=== PATIENT | female | born 1950 | race Two or more races ===

== ENCOUNTER 2020-02-15 15:22 | Inpatient (IN) | payer MEDICARE ==
[~2020-02-15] VITALS: Ht 165.1 cm; Wt 61.2 kg
--- NOTE | 2020-02-15 15:43 | NUR ---
pt rec'd to r via ems was d/c 3 days ago from [facility] . [place] 3 weeks ago./ iv started 18 g iv rt fa labs drawn sent to lab rt at bedside ra 85 % n/c 4 l 99% . sob talking on phone to daughter AWAITING EVALUATION BY ER PROVIDER.
[2020-02-15 15:58] LABS: ABG BASE EXCESS 3.5 mmol/L; ABG OXYGEN SATURATION 98.4 % (92.0-98.5); ABG PCO2 34.7 mmHg (35.0-45.0); ABG PH 7.501 (7.350-7.450); AaDO2 107.3 mmHg; COHb 0.3 % (0.5-1.5); MetHb 0.4 % (0.0-1.5); O2Hb 97.7 % (94.0-97.0); SITE, ABG Right Radial; VENT MODE, BG 5L NC
[2020-02-15] MEDS ORDERED: LEVO112T5 PO (16:28)
[2020-02-15] MEDS ORDERED: SERT100T12 PO (16:28)
[2020-02-15] MEDS ORDERED: ATOR10TA PO (16:28)
[2020-02-15] MEDS ORDERED: LORA-258 PO (16:28)
[2020-02-15] MEDS ORDERED: PRED20TA PO (16:28)
[2020-02-15] MEDS ORDERED: APIX5TAB PO (16:28)
[2020-02-15] MEDS ORDERED: FLEC50TA3 PO (16:28)
[2020-02-15] MEDS ORDERED: TRAZ-257 PO (16:28)
--- NOTE | 2020-02-15 16:45 | NUR ---
covid test done sent to lab
--- NOTE | 2020-02-15 16:49 | NUR ---
EPIC PAGED ITS CÉSAR.
[2020-02-15 16:53] LABS: CARBON DIOXIDE 30 mmol/L (21-32); CHLORIDE 102 mmol/L (98-107); POTASSIUM 3.8 mmol/L (3.5-5.1); SODIUM SERUM 141 mmol/L (136-145)
[2020-02-15 16:54] LABS: CALCIUM, SERUM 8.7 mg/dL (8.5-10.1); CREATININE 0.8 mg/dL (0.6-1.3); GLUCOSE 106 mg/dL (74-106); UREA NITROGEN, BLOOD 27 mg/dL (7-18)
[2020-02-15 16:56] LABS: D-DIMER 1.38 mg/L(FEU (0.17-0.50)
[2020-02-15 17:07] LABS: ALANINE AMINOTRANSFERASE 24 U/L (12-78); ALBUMIN 2.7 g/dL (3.4-5.0); ALKALINE PHOSPHATASE 86 U/L (46-116); ASPARTATE AMINOTRANSFERASE 21 U/L (15-37); BILIRUBIN,TOTAL 0.2 mg/dL (0.2-1.0); CREATINE KINASE, TOTAL 20 U/L (26-192); FERRITIN 425 ng/mL (8-388)
[2020-02-15 17:08] LABS: TOTAL PROTEIN, SERUM 6.7 g/dL (6.4-8.2)
[2020-02-15 17:29] LABS: B-TYPE NATRIURETIC PEPTIDE 269 PG/ML (0-125); C-REACTIVE PROTEIN 1.5 mg/dL (0.0-0.9)
[2020-02-15] MEDS ORDERED: FUROSEMIDE 40 MG/4 ML VIAL IV ONE ×2 (17:30→22:30)
[2020-02-15] MEDS ORDERED: Z GUARD REMEDY 2 OZ OINT TP PRN ×2 (17:30→18:30)
[2020-02-15] MEDS ORDERED: MAG HYDROX/AL HYDROX/SIMETH 30 ML UDC PO PRN (17:30)
[2020-02-15] MEDS ORDERED: MAGNESIUM HYDROXIDE 30 ML UDC PO PRN (17:30)
[2020-02-15] MEDS ORDERED: ONDANSETRON HCL/PF 4 MG/2 ML VIAL IVP PRN (17:30)
[2020-02-15] MEDS ORDERED: ACETAMINOPHEN 325 MG TABLET PO PRN (17:30)
[2020-02-15 17:32] LABS: BASOPHILS # (AUTO) 0.1 /CMM (0.0-0.2); BASOPHILS % (AUTO) 0.4 % (0.0-2.0); EOSINOPHILS % (AUTO) 1.5 % (0.0-6.0); HEMATOCRIT 38 % (33-45); HEMOGLOBIN 12.1 g/dL (11.5-14.8); LYMPHOCYTES # (AUTO) 1.3 /CMM (0.8-4.8); LYMPHOCYTES % (AUTO) 9.9 % (20.0-44.0); MEAN CORPUSCULAR HGB CONC 32 g/dl (31.0-36.0); MEAN CORPUSCULAR VOLUME 88 fL (82-100); MONOCYTES # (AUTO) 0.8 /CMM (0.1-1.30); MONOCYTES % (AUTO) 6.3 % (2.0-12.0); NEUTROPHILS # (AUTO) 10.4 /CMM (1.8-8.9); NEUTROPHILS % (AUTO) 81.9 % (43.0-81.0); PLATELET COUNT (AUTO) 325 /CMM (150-450); RED BLOOD CELL COUNT(AUTO) 4.28 MIL/uL (4.0-5.2); WHITE BLOOD COUNT (AUTO) 12.7 K/uL (4.3-11.0)
--- NOTE | 2020-02-15 17:38 | NUR ---
GOT BED 112
--- NOTE | 2020-02-15 17:43 | NUR ---
called report to floor pt stable for transfer 112
[2020-02-15] MEDS ORDERED: ATORVASTATIN 10 MG TABLET PO SCH (18:00)
--- NOTE | 2020-02-15 19:10 | NUR ---
Admission of 69 year old female who resides at home with her family under the care of Doctor Fanny for shortness of breath. Patient handoff report to night team registered nurse. Vinny Patino RN
[2020-02-15 20:00] VITALS: BP 110/63
[2020-02-15] MEDS: HYDROCODONE/APAP 5/325MG 1 EACH TABLET PO PRN (20:02)
[2020-02-15] MEDS ORDERED: FLECAINIDE ACETATE 50 MG TABLET PO SCH ×2 (21:00)
--- NOTE | 2020-02-15 21:50 | NUR ---
EXPERIMENTAL MECHANIC ELECTRICAL NOTES SPOKE WITH AFTER HOURS PHARMACIST VENKATESH. SHE OK'd TO GIVE LASIX, MISSED DOSE FROM 1730. ALSO GOOD TO GIVE TAMBACORE 100MG 1 TAB INSTEAD OF RX 50MG X2 TABS. AMANDA DONATO OK WITH IT. ORDER RECEIVED AND CARRIED OUT. WILL CONT TO MONITOR
[2020-02-15] MEDS: TRAZODONE 50 MG TABLET PO SCH (21:54)
--- NOTE | 2020-02-15 22:30 | NUR ---
INSTALLATION TECHNICIAN NOTES LASIX 40MG IV PUSH GIVEN PER PROTOCOL. BP 116/69, HR 73
[2020-02-16] VITALS: BP 110/73
[2020-02-16] MEDS: LORAZEPAM 0.5 MG TABLET PO PRN ×3 (00:32→21:05)
[2020-02-16 04:00] VITALS: BP 95/54
--- NOTE | 2020-02-16 07:00 | NUR ---
RN opening note: Patient received in bed. Awake, alert and oriented x4. Able to make needs known. On cont. o2 via NC @2-3lpm with saturation of 95%. Shortness of Breath noted on patient, not in respiratory distress. Tele monitoring showing sinus rhythm. IV site clean, dry, patent and intact. No pain reported by patient. Call light in reach. Bed locked, low and at semi-burnette's position. Side rails up x3. Safety ensured and observed. Will continue to monitor. Addendum: 02/16/20 at 5 by SAGRARIO FOREMAN RN PATIENT ON R/O FOR COVEMANUEL
[2020-02-16] MEDS ORDERED: LEVOTHYROXINE SODIUM 112 MCG TABLET PO SCH (07:30)
[2020-02-16 08:00] VITALS: BP 90/55
[2020-02-16] MEDS: FLECAINIDE ACETATE (100 MG) 100 MG TABLET PO SCH ×2 (08:20→21:05)
[2020-02-16] MEDS: SERTRALINE HCL 50 MG TABLET PO SCH (08:20)
[2020-02-16] MEDS: LEVOTHYROXINE SODIUM 112 MCG TABLET PO SCH (08:20)
[2020-02-16] MEDS: APIXABAN 5 MG TABLET PO SCH ×2 (08:24→18:00)
[2020-02-16] MEDS ORDERED: FUROSEMIDE 40 MG/4 ML VIAL IV SCH ×2 (09:00)
[2020-02-16] MEDS ORDERED: SERTRALINE HCL 50 MG TABLET PO SCH (09:00)
[2020-02-16] MEDS ORDERED: APIXABAN 5 MG TABLET PO SCH (09:00)
[2020-02-16] MEDS ORDERED: predniSONE 20 MG TABLET PO SCH (09:00)
[2020-02-16] MEDS: IV NS 0.9% 1,000 ML IV PRN ×2 (11:33→21:05)
[2020-02-16 12:00] VITALS: BP 103/68
[2020-02-16] MEDS: HYDROCODONE/APAP 5/325MG 1 EACH TABLET PO PRN (14:35)
[2020-02-16 16:00] VITALS: BP 118/72
--- NOTE | 2020-02-16 17:54 | NUR ---
RN note: Informed Dr. Escobedo that patient's medical records from [facility] has been received and is at the patient's chart.
[2020-02-16] MEDS: ATORVASTATIN 10 MG TABLET PO SCH (18:01)
--- NOTE | 2020-02-16 19:00 | NUR ---
RN closing note: Patient in bed. Awake, alert and oriented x4. Able to make needs known. On cont. o2 via NC @2-3lpm with saturation of 97%. Shortness of Breath noted on patient, not in respiratory distress. Tele monitoring showing sinus rhythm. IV site clean, dry, patent and intact. Pain reported by patient managed with medications on shift with reported relief. Call light in reach. Bed locked, low and at semi-burnette's position. Side rails up x3. Safety ensured and observed. Endorsed to oncoming shift for CASH. Addendum: 02/16/20 at 1954 by SAGRARIO FOREMAN RN PATIENT ON R/O FOR KATINA
[2020-02-16 20:00] VITALS: BP 109/79
[2020-02-16] MEDS: TRAZODONE 50 MG TABLET PO SCH (21:18)
[2020-02-17] VITALS: BP 100/80
[2020-02-17 04:00] VITALS: BP 105/59
[2020-02-17] MEDS: HYDROCODONE/APAP 5/325MG 1 EACH TABLET PO PRN ×2 (04:09→16:15)
--- NOTE | 2020-02-17 04:29 | NUR ---
RN NOTES ALERT AND ORIENTED. VERBALLY ABLE TO COMMUNICATE NEEDS. IN NO DISTRESS, BREATHING EVEN AND UNLABORED. ON 2 LPM 02 VIA NASAL CANNULA TOLERATING WELL. COMPLAINT ON PAIN, NORCO GIVEN WITH RELIEF. VITAL SIGNS WNL. KEPT CLEAN AND DRY. WILL ENDORSE TO NEXT SHIFT FOR CONTINUITY OF CARE.
--- NOTE | 2020-02-17 04:34 | NUR ---
RN NOTES ALERT AND ORIENTED. VERBALLY ABLE TO COMMUNICATE NEEDS. NOTED O2SAT AT 84-87% AT 3LPM VIA NASAL CANNULA. INCREASED O2 TO 5LPM SATURATION INCREASED TO 90%. CALLED MD, ORDERED ABG. RESULTS FOREWARDED TO MD (DR PATEL). GAVE NEW ORDER TO PUT PATIENT ON A MASK AT 10LPM. NOTED AND CARRIED OUT. O2SAT INCREASED FROM 92-94%. NO SHORTNESS OF BREATH NOTED. VITAL SIGNS WNL. CONTINUOUS MONITORING DONE. KEPT CLEAN AND DRY. WILL ENDORSE TO NEXT SHIFT FOR CONTINUITY OF CARE.
[2020-02-17] MEDS: IV NS 0.9% 1,000 ML IV PRN ×2 (05:39→17:18)
[2020-02-17 06:38] LABS: BASOPHILS # (AUTO) 0.1 /CMM (0.0-0.2); BASOPHILS % (AUTO) 0.6 % (0.0-2.0); EOSINOPHILS % (AUTO) 4.9 % (0.0-6.0); HEMATOCRIT 37 % (33-45); HEMOGLOBIN 12.1 g/dL (11.5-14.8); LYMPHOCYTES # (AUTO) 1.4 /CMM (0.8-4.8); LYMPHOCYTES % (AUTO) 14.8 % (20.0-44.0); MEAN CORPUSCULAR HGB CONC 33 g/dl (31.0-36.0); MEAN CORPUSCULAR VOLUME 87 fL (82-100); MONOCYTES # (AUTO) 0.8 /CMM (0.1-1.30); MONOCYTES % (AUTO) 8.1 % (2.0-12.0); NEUTROPHILS # (AUTO) 6.9 /CMM (1.8-8.9); NEUTROPHILS % (AUTO) 71.6 % (43.0-81.0); PLATELET COUNT (AUTO) 234 /CMM (150-450); RED BLOOD CELL COUNT(AUTO) 4.25 MIL/uL (4.0-5.2); WHITE BLOOD COUNT (AUTO) 9.6 K/uL (4.3-11.0)
[2020-02-17 07:05] LABS: ALBUMIN 2.5 g/dL (3.4-5.0); BILIRUBIN,TOTAL 0.4 mg/dL (0.2-1.0); CREATININE 0.7 mg/dL (0.6-1.3); MAGNESIUM 1.6 mg/dL (1.8-2.4); PHOSPHORUS 2.9 mg/dL (2.5-4.9); POTASSIUM 3.1 mmol/L (3.5-5.1); TOTAL PROTEIN, SERUM 5.9 g/dL (6.4-8.2)
--- NOTE | 2020-02-17 07:30 | NUR ---
MAMMAL KEEPER AM NOTES RECEIVED PT IN BED, AO X 4, ON 2L O2, NO DENIES SOB, RESPIRATION UNLABORED,SINUS RHYTHM HR 74, DENIES PAIN OR DISCOMFORT, IV ACCESS TO RT WRIST PULLED OUT, WILL RESTART IN ANOTHER SITE. AMBULATES WITH ASSIST, SEE NURSING FLOWSHEET FOR SKIN ISSUES, CARDIAC DIET. COVID TEST PENDING, ISOLATION PRECAUTION OBSERVED, SAFETY MEASURES IN PLACE , CALL IGHT WITHIN REACH WILL MONITOR CLOSELY.
[2020-02-17 08:00] VITALS: BP 97/55
[2020-02-17] MEDS: LEVOTHYROXINE SODIUM 112 MCG TABLET PO SCH (08:03)
[2020-02-17] MEDS: FLECAINIDE ACETATE (100 MG) 100 MG TABLET PO SCH ×2 (08:44→21:33)
[2020-02-17] MEDS: SERTRALINE HCL 50 MG TABLET PO SCH (08:44)
[2020-02-17] MEDS: APIXABAN 5 MG TABLET PO SCH ×2 (08:45→17:15)
--- NOTE | 2020-02-17 09:30 | NUR ---
TEAM MEMBER NOTES DUE MEDS GIVEN.
[2020-02-17] MEDS: Magnesium 1GM/D5W 100ML PREMIX 100 ML IV SCH ×2 (10:31→11:52)
[2020-02-17] MEDS ORDERED: POTASSIUM CHLORIDE 20 MEQ TAB.PRT.SR PO ONE (11:30)
[2020-02-17] MEDS ORDERED: POTASSIUM CHLORIDE 20 MEQ TAB.PRT.SR PO SCH (11:30)
[2020-02-17 12:00] VITALS: BP 133/51
--- NOTE | 2020-02-17 12:10 | NUR ---
RN NOTES NOTIFIED DR. LINDSEY ABOUT PATIENT WANTS TO TALK TO HIM AND NOTIFIED DR. LANDA REGARDING PATIENT WANTS TO TALK TO HIM WELL REGARDING HER APPOINTMENT TOMORROW AT HIS OFFICE.
[2020-02-17] MEDS: predniSONE 20 MG TABLET PO SCH (15:15)
[2020-02-17 16:00] VITALS: BP 109/62
[2020-02-17] MEDS: ATORVASTATIN 10 MG TABLET PO SCH (17:15)
--- NOTE | 2020-02-17 18:33 | NUR ---
WIRELESS RETAIL MANAGER CLOSING NOTES PT RESTING IN BED, AO X 4, ON 2L O2, DENIES SOB, RESPIRATION UNLABORED,SINUS RHYTHM HR 7Os TO 80s, DENIES PAIN OR DISCOMFORT, IV ACCESS LEFT FOREARM G 22 WITH NS AT 100ML/HR RUNNING, SITE CLEAR. AMBULATES WITH ASSIST, CARDIAC DIET. COVID TEST PENDING, ISOLATION PRECAUTION OBSERVED, PM CARE DONE EARLIER, SAFETY MEASURES IN PLACE , CALL LIGHT WITHIN REACH, ALL NEEDS MET WILL ENDORSE TO NEXT SHIFT FOR CASH.
--- NOTE | 2020-02-17 19:10 | NUR ---
RN OPENING NOTE RECEIVED PATIENT IS IN BED RESTING, HOB ELEVATED. BREATHING EVEN AND NON LABORED NO SOB NOTED. A&O X 4. ABLE TO MAKE NEEDS KNOWN. ON 2 L O2 VIA NC. IN NO APPARENT DISTRESS NOTED AT THIS TIME. BED IS LOWERED TO LOW POSITION FOR SAFETY. WILL CONTINUE TO MONITOR.
[2020-02-17 20:00] VITALS: BP 95/49
[2020-02-17] MEDS: TRAZODONE 50 MG TABLET PO SCH (21:33)
[2020-02-18] VITALS: BP 95/55
--- NOTE | 2020-02-18 01:45 | NUR ---
GIZZARD PULLER NOTE PATIENT TRANSFERRED TO [facility]-1 IN STABLE CONDITION AROUND THIS TIME. BELONGINGS SENT WITH PATIENT. REPORT GIVEN TO MELISSA MACIAS FOR CONTINUATION OF CARE.
--- NOTE | 2020-02-18 02:00 | NUR ---
TELE/STRIP STAMP STRAIGHTENER TO TELE MED SURG FLOOR. RECEIVED PATIENT TRANSFERED FROM [facility] ACCOMPANIED BY RN WITH BELONGINGS, PATIENT ALERT, ORIENTED X3, PROVIDED ROOM ORIENTATION AND ABLE TO PLAN CARE, PATIENT WOULD LIKE TO RECOVER AND GET BETTER AND BE ABLE TO MAKE APPT SCHEDULED WITH HER DOCTORS, THAT SHE WOULD LIKE TO BE EVALUATED FOR DISCHARGE SAFETY MEASURES TO BE ABLE TO SAFELY BE HOME. UNSTEADY GAIT WITH LOW BLOOD PRESSURE REPORTED. PATIENT ABLE TO COOPERATE, ON OXYGEN VIA NC AT 2LITER, ABLE TO VERBALIZE NEEDS, REQUIRE ASSISTANCE WITH ALL NEEDS. IV SITE ON RIGHT WRIST PATENT, SKIN INTACT, ON TELE SR. WILL ENDORSE TO AM RN FOR CASH. BED LOCKED, CALL LIGHTS WITHIN REACH.
[2020-02-18] MEDS: HYDROCODONE/APAP 5/325MG 1 EACH TABLET PO PRN ×2 (03:39→12:27)
--- NOTE | 2020-02-18 03:44 | NUR ---
TELE/RN PATIENT REPORTED CHEST PAIN ON RIGHT CHEST OF 06/01, PROVIDED COMFORT MEASURES, VITAL SIGNS CHECK AT 106/66,74, 98 PERCENT AT 2LITER OXYGEN, RESPIRATIONS EVEN, PATIENT REPORTED NEIGHBOR IS LOUD AND WORRIED ABOUT GOING HOME, BUT ABLE TO COOPERATE AND PRACTICE BREATHING , NEEDED MEDICATION NORCO 5-325 MG PO GIVEN. ALSO REPORTED NO BOWEL MOVT FOR THE PAST 5 DAYS. CHEST PAIN FOR THE LAST 5 WEEKS ALREADY REPORTED BY PATIENT.
[2020-02-18 04:00] VITALS: BP 95/55
--- NOTE | 2020-02-18 04:12 | NUR ---
TELE/RN NOTES RELIEVED CHEST PAIN FROM06/01 TO 12/30, PATIENT REQUIRE REORIENTATION PATIENT JUST CAME FROM [facility] AND WAS DOWNGRADED TO MS/TELE FLOOR.
--- NOTE | 2020-02-18 04:51 | NUR ---
MAINTAIN EFFECTIVE BREATHING PATTERN. Addendum: 02/18/20 at 0452 by GILBERTO QUINTERO RN Amended: Links added.
--- NOTE | 2020-02-18 07:00 | NUR ---
TELE/RN CLOSING NOTES PATIENT ABLE TO SLEEP FEW HOURS, ALERT, ORIENTED X3, WITH GOOD FAMILY SUPPORT,, ABLE TO VERBALIZE NEEDS, AND MD MADE ROUNDS, FOR DISCHARGE PLANNING AND F/U APPT. WITH MD IN ONE WEEK. PATIENT REQUIRE ASSISTANCE FOR SAFETY AND MAY NEED DC /CASE MGMT AND PHYSICAL THERAPY FOR EVALUATION. TO MONITOR.WILL ENDORSE TO AM RN FOR CASH.
[2020-02-18] MEDS: LEVOTHYROXINE SODIUM 112 MCG TABLET PO SCH (07:30)
--- NOTE | 2020-02-18 07:58 | NUR ---
TELE/RN OPENING NOTES RECEIVED PATIENT IN BED, AWAKE, ALERT AND ORIENTED. NO SIGNS OF RESPIRATORY DISTRESS, NO SIGNS OF SOB, AND WITH EVEN NON-LABORED BREATHING. IV ACCESS INTACT, IN PLACE, AND PATENT. ON CATERING ASSOCIATE WITH READING BLOCK SR 72. SAFETY PRECAUTIONS IN PLACE WITH BED IN THE LOWEST POSITION, BILATERAL SIDE RAILS UP, BED LOCKED, AND CALL LIGHT WITHIN EASY REACH OF THE PATIENT. WILL CONTINUE TO MONITOR.
[2020-02-18 08:49] LABS: CALCIUM, SERUM 8.2 mg/dL (8.5-10.1); CREATININE 0.6 mg/dL (0.6-1.3); MAGNESIUM 2.2 mg/dL (1.8-2.4); POTASSIUM 3.9 mmol/L (3.5-5.1)
[2020-02-18] MEDS: FLECAINIDE ACETATE (100 MG) 100 MG TABLET PO SCH (08:51)
[2020-02-18] MEDS: predniSONE 20 MG TABLET PO SCH (08:51)
[2020-02-18] MEDS: SERTRALINE HCL 50 MG TABLET PO SCH (08:51)
[2020-02-18] MEDS: APIXABAN 5 MG TABLET PO SCH (08:53)
--- NOTE | 2020-02-18 12:27 | NUR ---
MS/RN NOTES PATIENT C/O CHEST PAIN 05/01 NORCO 5/325MG WAS GIVEN.
--- NOTE | 2020-02-18 15:10 | NUR ---
MS/RN NOTES PATIENT IS ALERT AND ORIENTED X4. PATIENT DENIES PAIN AT THIS TIME. THE PATIENT IN NO APPARENT RESPIRATORY DISTRESS NOTED. SEEN AND EXAMINED BY MD WITH ORDERS MADE AND CARRIED OUT. PATIENT WAS GIVEN DISCHARGED INSTRUCTIONS AND PATIENT VERBALIZED UNDERSTANDING. THE PATIENT LEFT THE HOSPITAL IN STABLE CONDITION AT 1510, ACCOMPANIED BY PHOTOGRAPHY SPOTTER VIA WHEELCHAIR AND BRANCH OPERATIONS COORDINATOR BY KAREN THE DAUGHTER IN A PRIVATE CAR.
== END 2020-02-18 15:15 | disposition home health service (06) | DRG 205 ==
LOC: ER 15:24 → TELE-TD 18:58 → TELE1 20:51 → TELE 02-18 01:51 → MED 02-18 12:12
PROVIDERS: ADMIT Internal Medicine; ATTEND Internal Medicine
DX: J70.4 Drug-induced interstitial lung disorders, unspecified (principal); J96.01 Acute respiratory failure with hypoxia; E43 Unspecified severe protein-calorie malnutrition; I50.31 Acute diastolic (congestive) heart failure; I48.92 Unspecified atrial flutter; I31.9 Disease of pericardium, unspecified; E87.3 Alkalosis; I11.0 Hypertensive heart disease with heart failure; Z68.22 Body mass index [BMI] 22.0-22.9, adult; T46.2X5A Adverse effect of other antidysrhythmic drugs, initial encounter; Y92.89 Other specified places as the place of occurrence of the external cause; I48.91 Unspecified atrial fibrillation; E78.5 Hyperlipidemia, unspecified; E03.9 Hypothyroidism, unspecified; F32.9 Major depressive disorder, single episode, unspecified; F41.9 Anxiety disorder, unspecified; I95.9 Hypotension, unspecified; E87.6 Hypokalemia; Z87.891 Personal history of nicotine dependence; Z79.01 Long term (current) use of anticoagulants; J70.2 Acute drug-induced interstitial lung disorders
CPT/HCPCS: 36415; 36600; 71045-TC; 80048-TC; 80053-TC; 82550-TC; 82728-TC; 83605-TC; 83615-TC; 83735-TC; 83880; 84100-TC; 84484-TC; 85025-TC; 85378-TC; 85730-TC; 86140-TC; 87040-TC; 87081-TC; 93307-TC; A6403; G0378; J1940; J3475; J7030; J7042

== ENCOUNTER 2020-03-14 13:51 | Emergency (ER) | payer MEDICARE ==
[~2020-03-14] VITALS: Ht 165.1 cm; Wt 59.9 kg
[~2020-03-14 13:51] MED LIST: APIX5TAB PO; ATOR10TA PO; FLEC50TA3 PO; LEVO112T5 PO; LORA-258 PO; PRED20TA PO; SERT100T12 PO; TRAZ-257 PO
[2020-03-14 13:55] VITALS: BP 110/61
--- NOTE | 2020-03-14 13:55 | NUR ---
BIB FAMILY C/O SOB FOR 6 WEEKS AND DRY COUGH. PER PATIENT, WAS INSTRUCTED BY DR HERR TO GO TO THE ER. TO ER BED 8, HOOKED TO MONITOR, HOOKED TO 2LPM O2 VIA NC, CHANGED TO HOSP GOWN, WARM BLABKET PROVIDED, PATIENT AAO X 4, AWAITING MD RODRIGUEZ.
--- NOTE | 2020-03-14 14:24 | NUR ---
DR CRUZ AT BEDSIDE
--- NOTE | 2020-03-14 14:51 | NUR ---
Patient does not wish to proceed with medical care recommended by Dr. Fuentes. Patient given information related to possible complications, up to and including , which could occur as a result of leaving the hospital at this time. Patient verbalizes understanding of risks involved due to leaving against medical advice. Patient has signed AMA form.
== END 2020-03-14 14:51 | disposition left against medical advice (07) ==
LOC: ER 13:52
DX: R06.02 Shortness of breath (principal); I11.0 Hypertensive heart disease with heart failure; I50.9 Heart failure, unspecified; E03.9 Hypothyroidism, unspecified; E78.5 Hyperlipidemia, unspecified; J44.9 Chronic obstructive pulmonary disease, unspecified; Z88.8 Allergy status to other drugs, medicaments and biological substances; Z79.899 Other long term (current) drug therapy

== ENCOUNTER 2020-04-11 11:04 | Inpatient (IN) | payer MEDICARE ==
[2020-04-11] VITALS (17 sets, daily range): BP systolic 83–147; BP diastolic 40–79
[~2020-04-11] VITALS: Ht 165.1 cm; Wt 56.2 kg
[2020-04-11] MEDS ORDERED: IV NS 0.9% 1,000 ML BAG IV ONE (11:30)
--- NOTE | 2020-04-11 11:35 | NUR ---
BALJINDER FROM HOME TO ER BED 5. AAOX4. IN MOD RESP DISTRESS, BREATHING RAPID DEEP BREATHING. CAME IN FOR SOB. PER PT, SHE HAS BEEN GOING ON FOR WEEKS AND TODAY WAS WORST. PT IS BASELINE USING 02 AT HOME @ 3LPM VIA NC. PT ARRIVED ON HIGH FLOW O2 SATTING @ 100%. PT IS NOW TITRATED DOWN TO 5LPM VIA NC STILL SATTING AT 100%. WAS AT [facility] BEDSIDE FOR EVAL. ORDERS RECEIVED, NOTED AND CARRIED OUT. IV LIVE PRESENT ON RFA 18G BY EMS. STARTED NEW IV ON L WRIST 18G, BLOOD DRAWN AND GIVEN TO WOODS LABORER AT BEDSIDE. EKG DONE. PLACE ON MONITOR.
--- NOTE | 2020-04-11 11:36 | NUR ---
PT IS ALSO NOTED HYPOTENSIVE WITH SBP IN 90S
[2020-04-11 11:42] LABS: BASOPHILS # (AUTO) 0.1 /CMM (0.0-0.2); BASOPHILS % (AUTO) 0.4 % (0.0-2.0); EOSINOPHILS % (AUTO) 0.8 % (0.0-6.0); HEMATOCRIT 35 % (33-45); HEMOGLOBIN 11.1 g/dL (11.5-14.8); LYMPHOCYTES # (AUTO) 0.6 /CMM (0.8-4.8); MEAN CORPUSCULAR HGB CONC 32 g/dl (31.0-36.0); MEAN CORPUSCULAR VOLUME 88 fL (82-100); MONOCYTES # (AUTO) 0.7 /CMM (0.1-1.30); MONOCYTES % (AUTO) 4.8 % (2.0-12.0); NEUTROPHILS # (AUTO) 13.7 /CMM (1.8-8.9); PLATELET COUNT (AUTO) 201 /CMM (150-450); RED BLOOD CELL COUNT(AUTO) 3.94 MIL/uL (4.0-5.2); WHITE BLOOD COUNT (AUTO) 15.2 K/uL (4.3-11.0)
[2020-04-11] MEDS ORDERED: PIPERACILLIN /TAZOBACTAM 3.375 G in IV D5W 50 ML IV ONE (12:00)
[2020-04-11] MEDS ORDERED: VANCOMYCIN 1 GM in IV D5W 250 ML IV ONE (12:00)
--- NOTE | 2020-04-11 12:05 | NUR ---
MOVE SHEET SUBMITTED TO ADMITTING AND CALLED FOR TELE BED.
[2020-04-11 12:08] LABS: ALANINE AMINOTRANSFERASE 14 U/L (12-78); ALBUMIN 2.5 g/dL (3.4-5.0); ALKALINE PHOSPHATASE 73 U/L (46-116); ASPARTATE AMINOTRANSFERASE 22 U/L (15-37); BILIRUBIN,DIRECT 0.2 mg/dL (0.0-0.2); BILIRUBIN,TOTAL 0.5 mg/dL (0.2-1.0); CALCIUM, SERUM 8.7 mg/dL (8.5-10.1); CARBON DIOXIDE 31 mmol/L (21-32); CHLORIDE 101 mmol/L (98-107); CREATININE 0.7 mg/dL (0.6-1.3); GLUCOSE 116 mg/dL (74-106); POTASSIUM 3.6 mmol/L (3.5-5.1); SODIUM SERUM 136 mmol/L (136-145); TOTAL PROTEIN, SERUM 6.7 g/dL (6.4-8.2); UREA NITROGEN, BLOOD 19 mg/dL (7-18)
[2020-04-11] MEDS ORDERED: ONDANSETRON HCL/PF 4 MG/2 ML VIAL IVP PRN (13:00)
[2020-04-11] MEDS ORDERED: ACETAMINOPHEN 325 MG TABLET PO PRN (13:00)
[2020-04-11 13:02] LABS: APPEARANCE,URINE Clear (CLEAR); BILIRUBIN,URINE Negative (NEGATIVE); BLOOD, URINE Negative Ery/uL (NEGATIVE); COLOR,URINE Yellow (YELLOW); KETONES,URINE 15 (NEGATIVE); LEUKOCYTE ESTERASE ,URINE Negative (NEGATIVE); NITRITE, URINE Negative (NEGATIVE); PROTEIN,URINE 30 mg/dl (NEGATIVE); UGLUCOSE Negative (NEGATIVE)
[2020-04-11 13:08] LABS: BACTERIA,URINE Few /HPF (None Seen); RBC,URINE NONE SEEN /HPF (0-2); SQUAMOUS EPITHELIAL CELL,UR Few /HPF (None Seen); WBC,URINE NONE SEEN /HPF (0-3)
--- NOTE | 2020-04-11 14:05 | NUR ---
called to give report. nurse is on break. will call back again
--- NOTE | 2020-04-11 14:49 | NUR ---
report given to sadie hopkins for nory
--- NOTE | 2020-04-11 14:50 | NUR ---
PT NOTED SATTING @ 70S AFTER SHE HAD BM. PLACED ON FACE MASK @ 10LPM SATTING AT 80S.
[2020-04-11 14:58] LABS: C-REACTIVE PROTEIN 151.4 mg/dL (0.0-0.9)
--- NOTE | 2020-04-11 15:08 | NUR ---
PT IS ON O2 VIA NON REBREATHER @ 15LPM NOTED IN THE 88-93%. DR. ARREDONDO'S PA MADE AWARE.
--- NOTE | 2020-04-11 15:20 | NUR ---
ABG ORDERED AND DONE.
[2020-04-11 15:26] LABS: ABG BASE EXCESS -0.3 mmol/L; ABG OXYGEN SATURATION 90.4 % (92.0-98.5); ABG PCO2 37.1 mmHg (35.0-45.0); ABG PH 7.425 (7.350-7.450); ABG PO2 58.1 mmHg (75.0-100.0); AaDO2 473.4 mmHg; COHb 0.4 % (0.5-1.5); MetHb 0.2 % (0.0-1.5); O2Hb 89.9 % (94.0-97.0); SITE, ABG Right Radial; VENT MODE, BG NRB
[2020-04-11] MEDS ORDERED: LORAZEPAM INJ 2 MG/ML VIAL ONE (15:31)
--- NOTE | 2020-04-11 15:37 | NUR ---
PT IS REMAINED ON NON REBREATHER @ 15LPM SATTING @ 90-93%. PT IS ANXIOUS AND RESTLESS WHICH COULD BE EXACERABTING THE DESATURATION. MD NOTIFIED. VERBAL ORDER RECEIVED TO GIVE ATIVAN 1MG IV X 1. NOTED AND CARIED OUT
[2020-04-11] MEDS ORDERED: LORAZEPAM INJ 2 MG/ML VIAL IV ONE (16:00)
--- NOTE | 2020-04-11 16:05 | NUR ---
RN OPENING NOTES RECEIVED PATIENT FROM ER. A/O X4, AWAKE ABLE TO FOLLOW COMMANDS. PATIENT IS ON 10L O2 VIA MASK, SATURATING AT 92%. PATIENT PLACED ON TELE MONITOR, SINUS TACHY NOTED, HR GOES UP TO 110. LEFT WRIST #20, AND RFA #18, INTACT, PATENT AND FLUSHED WELL. NO SIGNS AND SYMPTOMS OF INFILTRATION NOTED. PATIENT IS REFUSING TO BE PLACED IN THE GOWN. REFUSING SKIN ASSESSMENT AND PICTURES. SAFETY MAINTAINED, CALL LIGHT WITHIN REACH, WILL CONTINUE TO MONITOR CLOSELY.
--- NOTE | 2020-04-11 16:08 | NUR ---
pt transported to unit on [place] with emt and rn at bedside w/ acls protocol.
[2020-04-11] MEDS ORDERED: FEE PK DOSING 1 MIN EA MC ONE (16:31)
[2020-04-11] MEDS ORDERED: predniSONE 20 MG TABLET PO SCH (17:00)
[2020-04-11] MEDS: ATORVASTATIN 10 MG TABLET PO SCH (17:26)
[2020-04-11] MEDS: APIXABAN 5 MG TABLET PO SCH (17:27)
[2020-04-11] MEDS ORDERED: DEXAMETHASONE SOD PHOSPHATE 10 MG/ML VIAL IV SCH (18:30)
--- NOTE | 2020-04-11 18:51 | NUR ---
RN NOTE 1830: Received patient from Tele 1, patient admitted for Hypoxic RF, PNA, R/O Covid. Transferred to ICU for requiring increase O2 supplement, placed on HFNC by RT 60LPM 100% FIO2 and ABG 1929. Patient is confused and unable to concentrate. 1855: Dr. Lloyd called and wants to get ABG now, informed RT and endorsed to next shift.
[2020-04-11] MEDS: DEXAMETHASONE SOD PHOSPHATE 10 MG/ML VIAL IV SCH (18:59)
--- NOTE | 2020-04-11 19:00 | NUR ---
Received patient lethargic,but easily arousable,responds to verbal stimuli/name call,opens eyes briefly ,tries to communicate,but disoriented/confuse,floows simple commands.On High Flow oxygen via nasal cannula 60 Liters/100 % FIO2, not in any acute respiratory distress,but with SOB on exertion, + dry cough. Moves but very weakly and looks very tired,needs full assistance with mobility.Will closely monitor respiratory status,weann off High flow oxygen as tolerated.
--- NOTE | 2020-04-11 19:40 | NUR ---
ABG result on 60 Liters/100 % High flow relayed to Dr. Lloyd. Wants to slowly wean down O2 to maintain saturation of 92 % and above. 1999 High Flow decreased FIO2 to 80 % by RT.
[2020-04-11] MEDS ORDERED: CEFEPIME 2 GM in IV NS 0.9% 50 ML IV SCH (21:00)
[2020-04-11] MEDS: FLECAINIDE ACETATE 50 MG TABLET PO SCH (21:00)
[2020-04-11] MEDS: CEFEPIME 2 GM in IV D5W 100 ML IV SCH (21:14)
--- NOTE | 2020-04-11 22:00 | NUR ---
Tolerating high flow on 80 % FIO2 but still with SOB on exertion.
--- NOTE | 2020-04-11 22:30 | NUR ---
Patient woke up ,very awake,but confuse ,trying to get out of bed,took off Oxygen cannula,became very tachypneic ,very short of breath, desaturated as low as 70's . O2 saturation slowly back up in the 90's after placing back High flow. Noted to be wet, incontinent of urine.will insert urrutia catheter, maybe patient tried to get up to go to the bathroom.
--- NOTE | 2020-04-11 23:00 | NUR ---
PM bath done,urrutia catheter inserted. Patient remains very confuse and restless when awake.Bed alarm turned on at all times,keen fall Precaution implemented.
[2020-04-11] MEDS: TRAZODONE 50 MG TABLET PO SCH (23:04)
[2020-04-12] VITALS (47 sets, daily range): BP systolic 87–134; BP diastolic 37–90
--- NOTE | 2020-04-12 | NUR ---
Calm at this time,asleep.saturating 100 %.Decrease FIO2 to 70 %,still with 60 Liters O2.Will closely monitor respiratory status.
[2020-04-12] MEDS: VANCOMYCIN 1 GM in IV D5W 250ml IV SCH ×2 (01:00→13:00)
--- NOTE | 2020-04-12 02:00 | NUR ---
on and off restless when awakens,still very confuse ,gets very short of breath when agitated,pulling lines trying to get out of bed. when calm saturating 98=99 %,
--- NOTE | 2020-04-12 04:00 | NUR ---
Status unchanged. 0500 Agitated,restless,confuse,pulling lines,and taking off High Flow,trying to get out of bed again,place on bilateral soft wrist restraints.
[2020-04-12 04:22] LABS: BASOPHILS % (AUTO) 0.1 % (0.0-2.0); HEMATOCRIT 30 % (33-45); HEMOGLOBIN 9.7 g/dL (11.5-14.8); LYMPHOCYTES # (AUTO) 0.4 /CMM (0.8-4.8); LYMPHOCYTES % (AUTO) 2.8 % (20.0-44.0); MEAN CORPUSCULAR HGB CONC 32 g/dl (31.0-36.0); MEAN CORPUSCULAR VOLUME 87 fL (82-100); MONOCYTES # (AUTO) 0.3 /CMM (0.1-1.30); MONOCYTES % (AUTO) 1.7 % (2.0-12.0); NEUTROPHILS # (AUTO) 14.8 /CMM (1.8-8.9); NEUTROPHILS % (AUTO) 95.4 % (43.0-81.0); PLATELET COUNT (AUTO) 195 /CMM (150-450); RED BLOOD CELL COUNT(AUTO) 3.47 MIL/uL (4.0-5.2); WHITE BLOOD COUNT (AUTO) 15.5 K/uL (4.3-11.0)
[2020-04-12 04:38] LABS: CALCIUM, SERUM 8.4 mg/dL (8.5-10.1); CREATININE 0.6 mg/dL (0.6-1.3); MAGNESIUM 1.9 mg/dL (1.8-2.4); PHOSPHORUS 2.1 mg/dL (2.5-4.9); POTASSIUM 3.2 mmol/L (3.5-5.1)
[2020-04-12] MEDS: DEXAMETHASONE SOD PHOSPHATE 10 MG/ML VIAL IV SCH ×3 (04:45→20:21)
[2020-04-12] MEDS: CEFEPIME 2 GM in IV D5W 100 ML IV SCH ×3 (04:46→20:21)
[2020-04-12] MEDS: LORAZEPAM 0.5 MG TABLET PO PRN ×3 (05:25→15:38)
--- NOTE | 2020-04-12 06:00 | NUR ---
Awake.alert,very confuse,on and off restless,still on High flow 60 liyers /70% FIO2.Still easily gets very short of breath and easily desaturates if O2 comes off.Will need to closely monitor to make sure O2 is on all the time. Still pending Covid test result.Maintain isolation.
--- NOTE | 2020-04-12 07:00 | NUR ---
received patient with high flow oxygen 60L, FiO2 70%, spo2 >94%, restless
--- NOTE | 2020-04-12 08:00 | NUR ---
RT attempted to put patient on 6L O2 via NC, however desaturation noted, SPO2 85%. Placed back on high flow 55L, 60% FiO2
[2020-04-12] MEDS: SERTRALINE HCL 50 MG TABLET PO SCH (08:49)
[2020-04-12] MEDS: APIXABAN 5 MG TABLET PO SCH ×2 (08:50→18:15)
[2020-04-12] MEDS: FLECAINIDE ACETATE 50 MG TABLET PO SCH (08:50)
[2020-04-12] MEDS: LEVOTHYROXINE SODIUM 112 MCG TABLET PO SCH (08:50)
[2020-04-12] MEDS: POTASSIUM CHLORIDE 20 MEQ TAB.PRT.SR PO SCH ×2 (10:27→11:30)
[2020-04-12] MEDS ORDERED: K PHOS NEUTRAL 250 MG TABLET PO ONE (10:30)
--- NOTE | 2020-04-12 10:41 | NUR ---
Code Status note Received call from Dean, patient's brother [phone] @[phone] today who stated he is patient's decision maker and she is to be DNI. On the facesheet, patient's daughter Anne Marie is listed. Called to verify with Anne Marie @1040 who verified DNI status. Patient is oriented to self (verbalizes name) and time (verbalizes year is 2019) only , when asked if she would want to be intubated she said "no" . Dr. Lloyd aware of change. Addendum: 04/12/20 at 1126 by SALLIE BHAKTA RN added dean to facesheet as person to notify
--- NOTE | 2020-04-12 13:45 | NUR ---
Spo2 85%, RR 50s, HR 120s -> increased highflow to 60L O2, 80%FiO2
[2020-04-12] MEDS ORDERED: AZITHROMYCIN 250 MG in IV D5W 250 ML IV SCH (14:00)
[2020-04-12] MEDS ORDERED: CEFTRIAXONE 1 G in IV D5W 50 ML IV SCH (15:00)
[2020-04-12] MEDS: FLECAINIDE ACETATE (100 MG) 100 MG TABLET PO SCH (15:00)
[2020-04-12] MEDS ORDERED: Z GUARD REMEDY 2 OZ OINT TP PRN (17:00)
[2020-04-12] MEDS: ATORVASTATIN 10 MG TABLET PO SCH (18:15)
--- NOTE | 2020-04-12 19:02 | NUR ---
COLDFUSION Closing note Patient is awake, oriented to self & year, follows command, spoke to Anne Marie (daughter) over phone today x2. On highflow nasal cannula 60L, 80%FiO2, SPO2 98%, RR 35. Patient is extremely restless, pulling off cannula throughout shift. Restrained bilaterally, soft wrist, Ativan given. Tele monitor attachd. SR/ST w/ PACs HR 90s-120s upto 130 when distressed. Eats well, >50% of meals, drinking fluids. x1 BM large brown formed BM today. Cohen intact 1100 mL output this shift. Skin intact. R FA18G , LH 20G intact, patent, [email or web address]. See code status note.
--- NOTE | 2020-04-12 21:55 | NUR ---
TANK SHOP SUPERVISOR INITIAL SHIFT NOTES RECEIVED PATIENT IN BED AWAKE, ALERT TO SELF, BUT CONFUSED WITH PERIODS OF RESTLESSNESS/AGITATION, MOVING AROUND IN BED FREQUENTLY. PATIENT ENCOURAGED TO GET REST, BUT UNABLE TO FOLLOW COMMANDS DUE TO PERIODIC/OCCASIONAL RESTLESSNESS. ON O2 VIA HI-FLOW NC @ 60LPM, FIO2 85%, TOLERATING WELL WHEN NOT AGITATED. BEDSIDE TELEMETRY MONITORING READS SINUS RHYTHM. ERICKSON CATHETER PATENT AND INTACT, DRAINING CLOUDY, PINK TINGED URINE VIA GRAVITY. HOB KEPT ELEVATED, BED IN LOWEST AND LOCKED POSITION. ISOLATION PRECAUTIONS OBSERVED FOR R/O COVID-19. WILL CONTINUE TO CLOSELY MONITOR THE PATIENT
[2020-04-12] MEDS: TRAZODONE 50 MG TABLET PO SCH (22:35)
[2020-04-13] VITALS (48 sets, daily range): BP systolic 87–158; BP diastolic 52–115
[2020-04-13] MEDS: VANCOMYCIN 1 GM in IV D5W 250ml IV SCH ×2 (01:18→13:57)
[2020-04-13] MEDS: FLECAINIDE ACETATE (100 MG) 100 MG TABLET PO SCH ×2 (02:39→15:00)
--- NOTE | 2020-04-13 03:17 | NUR ---
DISK AND TAPE MACHINE TENDER NOTES PATIENT REMAINS CONFUSED, ASKING MULTIPLE QUESTIONS REGARDING SCHEDULED CARDIAC MEDICATION. PATIENT TEACHING PROVIDED, AFTER TEACHING, PATIENT AGREED TO TAKE PO TAMBOCOR. WILL MONITOR CLOSELY
[2020-04-13 04:16] LABS: BASOPHILS % (AUTO) 0.1 % (0.0-2.0); HEMATOCRIT 30 % (33-45); HEMOGLOBIN 9.6 g/dL (11.5-14.8); LYMPHOCYTES # (AUTO) 0.6 /CMM (0.8-4.8); LYMPHOCYTES % (AUTO) 2.9 % (20.0-44.0); MEAN CORPUSCULAR HGB CONC 32 g/dl (31.0-36.0); MEAN CORPUSCULAR VOLUME 87 fL (82-100); MONOCYTES # (AUTO) 0.7 /CMM (0.1-1.30); MONOCYTES % (AUTO) 3.5 % (2.0-12.0); NEUTROPHILS # (AUTO) 18.7 /CMM (1.8-8.9); NEUTROPHILS % (AUTO) 93.5 % (43.0-81.0); PLATELET COUNT (AUTO) 243 /CMM (150-450); RED BLOOD CELL COUNT(AUTO) 3.39 MIL/uL (4.0-5.2); WHITE BLOOD COUNT (AUTO) 20.1 K/uL (4.3-11.0)
[2020-04-13 04:32] LABS: CALCIUM, SERUM 8.5 mg/dL (8.5-10.1); CREATININE 0.8 mg/dL (0.6-1.3); PHOSPHORUS 2.4 mg/dL (2.5-4.9); POTASSIUM 3.1 mmol/L (3.5-5.1)
[2020-04-13] MEDS: CEFEPIME 2 GM in IV D5W 100 ML IV SCH ×3 (05:16→21:11)
[2020-04-13] MEDS: DEXAMETHASONE SOD PHOSPHATE 10 MG/ML VIAL IV SCH ×3 (05:16→21:12)
--- NOTE | 2020-04-13 05:44 | NUR ---
EDUCATION ADMINISTRATOR NOTES PATIENT VERY CONFUSED, WITH PERIODS OF AGITATION. ATTEMPTED TO REORIENT PATIENT TO REALITY, WHICH HELPED DECREASE THE PATIENT'S AGITATION, BUT PATIENT REMAINS CONFUSED. WILL REORIENT NEEDED
[2020-04-13] MEDS: LORAZEPAM 0.5 MG TABLET PO PRN (06:10)
--- NOTE | 2020-04-13 06:30 | NUR ---
GRADUATION COACH CLOSING NOTES PATIENT RESTING IN BED, CONFUSED, RESTLESS. ATIVAN PO ALREADY ADMINISTERED. CONTINUES ON HI-FLOW NC, TITRATED BY RT DOWN TO 55L, 70% FIO2. WILL ENDORSE THE PATIENT TO THE AM SHIFT NURSE FOR CASH
[2020-04-13] MEDS: LEVOTHYROXINE SODIUM 112 MCG TABLET PO SCH (07:42)
[2020-04-13] MEDS: APIXABAN 5 MG TABLET PO SCH ×2 (07:43→16:34)
[2020-04-13] MEDS: SERTRALINE HCL 50 MG TABLET PO SCH (07:49)
--- NOTE | 2020-04-13 08:00 | NUR ---
ELECTRIC TRIPPER MACHINE OPERATOR RECEIVED PT IN BED AWAKE CONFUSED AND RESTLESS, PT IS ON HIGH FLOW OXYGEN RR 40S SHALLOW, RESTRAINTS RELEASED PT ATTEMPTING TO REMOVED LINES AND GET OUT OF BED CHECKED FOR CIRCULATION ROM REAPPLIED RESTRAINTS PROVIDED FLUIDS AND PT BREAKFAST, SAFETY MEASURES TAKEN CALL LIGHT W IN REACH ERICKSON PATENT DRAINING URINE WILL CONTINUE TO MONITOR.
[2020-04-13 09:25] LABS: THYROID STIMULATING HORMONE 0.46 uIU/mL (0.358-3.74)
[2020-04-13] MEDS: POTASSIUM CHLORIDE 20 MEQ TAB.PRT.SR PO SCH ×3 (09:38→11:08)
[2020-04-13] MEDS: ALPRAZOLAM 0.25 MG TABLET PO PRN ×2 (10:32→18:33)
[2020-04-13] MEDS ORDERED: NEUTRA PHOS 1 POWD.PACKET PO ONE (16:00)
[2020-04-13] MEDS: ATORVASTATIN 10 MG TABLET PO SCH (18:33)
--- NOTE | 2020-04-13 19:40 | NUR ---
I WAS CALLED TO CHECK ON THE PT DUE TO INCREASED WOB AND LOW O2 SAT. PT WAS ON NC AND O2 SAT WAS IN 75%, RN AT BEDSIDE. PT PLACED BACK ON HIGH FLOW NC 45L WITH 80% FIO2. O2 SAT IMPROVED AND MORE RELAX. O2 SAT 99%. WILL CONTINUE TO MONITOR.
--- NOTE | 2020-04-13 19:53 | NUR ---
PLANT AND EQUIPMENT WORKER, PT DESATURATED AND SHORTNESS OF BREATH HIGH FLOW OXYGEN STARTED
--- NOTE | 2020-04-13 19:55 | NUR ---
ANIMAL RIDE ATTENDANT. INITIAL ASSESSMENT. RECEIVED THE PT REST ON THE BED, WITH OXYGEN 4L VIA NASAL CANNULA. SAT 80, AWAKE, ALERT.OXYGEN HIGH FLOW 45L SAT ,O2 100%. TAPE RECORDER MECHANIC SHOWING S TACH.IV RT AND LT HAND 20G. SALINE LOCK. FC PATENT. URINE DRAINING, HOB ELEVATED. WILL CONTINUE TO MONITOR VITALS.
--- NOTE | 2020-04-13 20:32 | NUR ---
FIO2 TITRATED. RN NOTIFIED.
[2020-04-13] MEDS: TRAZODONE 50 MG TABLET PO SCH (21:12)
[2020-04-14] VITALS (32 sets, daily range): BP systolic 89–138; BP diastolic 53–96
[2020-04-14] MEDS: VANCOMYCIN 1 GM in IV D5W 250ml IV SCH ×2 (00:30→12:01)
--- NOTE | 2020-04-14 03:14 | NUR ---
agricultural loan officer. am care, given. linen changed, remaining same oxygen tolerated well. sat 97%. quality assurance monitor final showing nsr. iv rt and lt hand tko running. hob elevated, fc patent urine draining. afebrill . hob elevated, quality assurance monitor final showing nsr. carlos a soft wrist restraint checked and released, no injury or redness noted, will continue to monitor vitals.
[2020-04-14] MEDS: FLECAINIDE ACETATE (100 MG) 100 MG TABLET PO SCH ×2 (03:48→15:23)
[2020-04-14 04:01] LABS: BASOPHILS # (AUTO) 0.1 /CMM (0.0-0.2); BASOPHILS % (AUTO) 0.3 % (0.0-2.0); HEMATOCRIT 33 % (33-45); HEMOGLOBIN 10.5 g/dL (11.5-14.8); LYMPHOCYTES # (AUTO) 1.2 /CMM (0.8-4.8); LYMPHOCYTES % (AUTO) 4.7 % (20.0-44.0); MEAN CORPUSCULAR HGB CONC 32 g/dl (31.0-36.0); MEAN CORPUSCULAR VOLUME 88 fL (82-100); MONOCYTES # (AUTO) 1.2 /CMM (0.1-1.30); MONOCYTES % (AUTO) 4.8 % (2.0-12.0); NEUTROPHILS # (AUTO) 22.5 /CMM (1.8-8.9); NEUTROPHILS % (AUTO) 90.2 % (43.0-81.0); PLATELET COUNT (AUTO) 326 /CMM (150-450); RED BLOOD CELL COUNT(AUTO) 3.78 MIL/uL (4.0-5.2)
[2020-04-14 04:16] LABS: CALCIUM, SERUM 8.7 mg/dL (8.5-10.1); PHOSPHORUS 3.4 mg/dL (2.5-4.9); POTASSIUM 4.1 mmol/L (3.5-5.1)
[2020-04-14] MEDS: CEFEPIME 2 GM in IV D5W 100 ML IV SCH ×2 (04:39→12:01)
[2020-04-14] MEDS: DEXAMETHASONE SOD PHOSPHATE 10 MG/ML VIAL IV SCH ×3 (04:40→21:04)
--- NOTE | 2020-04-14 07:30 | NUR ---
ICU/RN PT IS ON THE HI FLOW O2,SAT O2-95-96%.SOB,HAS DRY COUGH.AWAKE ,CONFUSED,FORGETFUL.WAS AGITATED LAST NIGHT,PLACED ON BILATERAL SOFT RESTRAINS AND MITTENS.DID PULL HER F/C,F/C IN PLACED,DRAINS WITH BLOODY URINE.MD NOTIFIED.V/S STABLE,AFEBRILE.NO PAIN REPORTED AT THIS TIME.
[2020-04-14] MEDS: LEVOTHYROXINE SODIUM 112 MCG TABLET PO SCH (07:42)
[2020-04-14] MEDS: APIXABAN 5 MG TABLET PO SCH ×2 (08:03→16:03)
[2020-04-14] MEDS: SERTRALINE HCL 50 MG TABLET PO SCH (08:03)
--- NOTE | 2020-04-14 08:56 | NUR ---
ICU/RN DUE MEDS ARE GIVEN ORDERED.PT EATS 25% FROM HER BREAKFAST TRAY WITH ASSISTANCE.HAS SOB DURING EATING.LABS REVIEW.AM CARE PROVIDED.REPOSITION FOR COMFORT.
[2020-04-14 09:03] LABS: CHOLESTEROL 122 mg/dL (<200); HDL CHOLESTEROL 35 mg/dL (40-60); LDL 72 mg/dL (0-99); TRIGLYCERIDES 93 mg/dL (30-150)
[2020-04-14] MEDS: ALPRAZOLAM 0.25 MG TABLET PO PRN ×2 (11:22→23:41)
--- NOTE | 2020-04-14 16:30 | NUR ---
ICU/RN PM CARE PROVIDED.DUE MEDS ARE GIVEN ORDERED.PT HAS SOB,ANXIETY,FORGETFUL.HR-115 BPM.RR-40 BPM.ILE.NO PAIN REPORTED AT THIS TIME.CONTINUE MONITORING.
[2020-04-14] MEDS: ATORVASTATIN 10 MG TABLET PO SCH (17:04)
--- NOTE | 2020-04-14 19:39 | NUR ---
ICU/ OPENING RECEIVED PATIENT IN BED CURRENTLY WITH NO SIGNS OF ANY DISTRESS. PATIENT IS CONFUSED SAYS "I AM HAVING SECOND THOUGHTS ABOUT ALL OF THIS" TRIED TO GET HER TO ELABORATE BUT SHE GOES ON TO SPEAK ON ANOTHER SUBJECT. PATIENT IN ON HIGH FLOW O2 WITH FIO2 OF 50% AND FLOW RATE OF 80L SATURATING AT 98%. PATIENT IS BREATHING AT A HIGH RATE OF 35B/MIN BUT SEEMS VERY ANXIOUS. SOFT RESTRAINTS ARE ON BILATERALLY ON WRIST. NSR WITH TACHY WITH HR AT 105. FC IN PLACE DRAINING VIA GRAVITY WITH RED CLEAR OUTPUT ASSESSED. PATIENT HAS RT WRIST #22, AND LT HAND #20 PATENT AND FLUSHING WITH TKO INFUSING. ALL SAFETY PRECAUTIONS APPLIED. MONITORING PATIENT RIGHT BY DOOR. RELAXATION TIPS PERFORMED. WILL CONTINUE TO MONITOR.
[2020-04-14] MEDS: TRAZODONE 50 MG TABLET PO SCH (21:04)
[2020-04-15] VITALS (33 sets, daily range): BP systolic 83–161; BP diastolic 16–93
[2020-04-15] MEDS: CEFEPIME 2 GM in IV D5W 100 ML IV SCH ×2 (00:53→12:21)
[2020-04-15] MEDS: VANCOMYCIN 1 GM in IV D5W 250ml IV SCH ×2 (01:24→13:04)
[2020-04-15] MEDS: FLECAINIDE ACETATE (100 MG) 100 MG TABLET PO SCH ×2 (03:57→14:40)
[2020-04-15] MEDS: DEXAMETHASONE SOD PHOSPHATE 10 MG/ML VIAL IV SCH (04:01)
[2020-04-15 04:22] LABS: HEMATOCRIT 30 % (33-45); HEMOGLOBIN 9.8 g/dL (11.5-14.8); LYMPHOCYTES # (AUTO) 0.7 /CMM (0.8-4.8); MEAN CORPUSCULAR HGB CONC 32 g/dl (31.0-36.0); MEAN CORPUSCULAR VOLUME 87 fL (82-100); MONOCYTES % (AUTO) 4.7 % (2.0-12.0); NEUTROPHILS # (AUTO) 20.3 /CMM (1.8-8.9); NEUTROPHILS % (AUTO) 92.3 % (43.0-81.0); PLATELET COUNT (AUTO) 267 /CMM (150-450); RED BLOOD CELL COUNT(AUTO) 3.49 MIL/uL (4.0-5.2)
[2020-04-15 05:00] LABS: ALBUMIN 2.4 g/dL (3.4-5.0); BILIRUBIN,TOTAL 0.5 mg/dL (0.2-1.0); CALCIUM, SERUM 8.2 mg/dL (8.5-10.1); CREATININE 0.7 mg/dL (0.6-1.3); POTASSIUM 3.4 mmol/L (3.5-5.1)
--- NOTE | 2020-04-15 07:30 | NUR ---
SURGICAL LEAD NOTES RECEIVED PATIENT IN BED A/O X 2-3. ON HIGH FLOW O2 WITH LEFT SIDE SALINE LOCK (TKO). TACHY CARDIA WITH TACHYPNEA. SATURATING 92-93%. PATIENT HAS ERICKSON. CALL LIGHT WITHIN REACH BED AT THE LOWEST POSITION LOCKED. WILL CONTINUE TO MONITOR THE PATIENT.
[2020-04-15] MEDS ORDERED: POTASSIUM CHLORIDE 20 MEQ TAB.PRT.SR PO SCH (08:00)
--- NOTE | 2020-04-15 08:00 | NUR ---
WOUND CARE CONSULT: PT PRESENTS WITH INTACT SKIN. PT NOTED TO BE MOVING HER LEGS ABOUT IN BED. ERICKSON CATH NOTED WITH RED DRAINAGE. DISCUSSED SKIN PROTECTION WITH NURSING STAFF. WILL SEE PRMargareth SILVER IN AGREEMENT WITH PLAN OF CARE. PT IS ON ROSEANN ISOFLEX LOW AIRLOSS BED.
[2020-04-15] MEDS: LEVOTHYROXINE SODIUM 112 MCG TABLET PO SCH (08:04)
[2020-04-15] MEDS: APIXABAN 5 MG TABLET PO SCH ×2 (08:06→16:50)
[2020-04-15] MEDS: SERTRALINE HCL 50 MG TABLET PO SCH (08:06)
[2020-04-15] MEDS: ALPRAZOLAM 0.25 MG TABLET PO PRN (08:31)
--- NOTE | 2020-04-15 10:00 | NUR ---
PATIENT SAFETY TECH NOTES RIGHT HAND IV SITE WAS INFILTRATED AND REMOVED.
[2020-04-15 10:11] LABS: MAGNESIUM 2.1 mg/dL (1.8-2.4); PHOSPHORUS 2.4 mg/dL (2.5-4.9)
[2020-04-15] MEDS ORDERED: K PHOS NEUTRAL 250 MG TABLET PO ONE (12:00)
[2020-04-15] MEDS: methylPREDNISolone SOD SUCC 125 MG/2ML VIAL IV SCH ×2 (12:20→18:24)
[2020-04-15] MEDS ORDERED: DEXAMETHASONE SOD PHOSPHATE 10 MG/ML VIAL IV SCH (13:00)
--- NOTE | 2020-04-15 15:22 | NUR ---
METALLIC YARN SLITTING MACHINE OPERATOR NOTES NOTIFIED HOSPITALIST LAKISHA MENDOZA ABOUT THE BLOOD IN THE ERICKSON CATHETER. PER HOSPITALIST LAKISHA IT IS OK TO HOLD ELIQUIS FOR TODAY.
--- NOTE | 2020-04-15 16:51 | NUR ---
FINISHED CARPET INSPECTOR NOTES ELIQUIS NOT ADMINISTERED PER HOSPITALIST [facility] ORDER.
[2020-04-15] MEDS ORDERED: ALPRAZOLAM 0.5 MG TABLET PO PRN (18:00)
[2020-04-15] MEDS: ATORVASTATIN 10 MG TABLET PO SCH (18:24)
--- NOTE | 2020-04-15 19:10 | NUR ---
CHASER TAR NOTE RECEIVED PATIENT IN BED WITH HOB ELEVATED. NON RESPONSIVE. NOTED PATIENT WITH DIFFICULTY BREATHING. BREATHING IS DEEP, LABORED. RESPIRATIONS AT 38 PER MIN. ON O2 HIGH FLOW @ 80% VIA T-PIECE. O2 SAT IS 91% AT THIS TIME. NOTED PATIENT WITH TACHYCARDIA ON MONITOR. HR IS 128 AT THIS TIME. SKIN IS MOIST. IV SITE ON LEFT HAND IS CLEAN, DRY, AND PATENT. PATIENT ON ERICKSON CATH, URINE IS RED COLOR. ON BILATERAL SOFT WRIST RESTRAINTS. BED IS LOWERED AND LOCKED FOR SAFETY. WILL CONTINUE TO MONITOR.
--- NOTE | 2020-04-15 19:19 | NUR ---
RN RADIOLOGY NOTES PATIENT IN BED WITH LABORED BREATHING STILL ON HIGH FLOW SATURATING 91-92%. RIGHT IV SITE PATENT AND ON TKO. ERICKSON 300OUT . ALL NEED ATTENDED. MEDICATION ADMINISTRATED. REPORT GIVEN TO FOREX TRADER NURSE FOR CASH.
--- NOTE | 2020-04-15 19:32 | NUR ---
RT NOTES Pt received with labored breathing and spo2 89% on high flow nasal cannula on 50LPM and fio2 90%. High flow titrated to fio2 100% and flow of 60LPM. Pt spo2 92%. RN and supplier specialist aware. Addendum: 04/15/20 at 2156 by ALYSSA MARK RT Amended: Links added.
[2020-04-15 20:56] LABS: ABG BASE EXCESS -8.7 mmol/L; ABG OXYGEN SATURATION 84.4 % (92.0-98.5); ABG PCO2 40.3 mmHg (35.0-45.0); ABG PH 7.262 (7.350-7.450); ABG PO2 60.5 mmHg (75.0-100.0); AaDO2 612.2 mmHg; COHb 0.3 % (0.5-1.5); MetHb 0.1 % (0.0-1.5); O2Hb 84.1 % (94.0-97.0); SITE, ABG Left Radial
--- NOTE | 2020-04-15 21:00 | NUR ---
PRODUCTION PROOFREADER NOTE CALLED PATIENT'S FAMILY, DAUGHTER KAREN AND BROTHER DOLORES. INFORMED THEM OF PATIENT'S CONDITION. FAMILY REQUESTED TO SEE PATIENT AT THIS TIME. NOTIFIED CHANNEL LIP STIFFENER INSOLES AND RECEIVED APPROVAL FOR ONE FAMILY MEMBER TO SEE PATIENT.
[2020-04-15] MEDS: TRAZODONE 50 MG TABLET PO SCH (22:00)
--- NOTE | 2020-04-15 22:00 | NUR ---
PULP BEATER NOTE PATIENT IS HIGH RISK FOR ASPIRATION AT THIS TIME. NO MEDS GIVEN PO.
--- NOTE | 2020-04-15 23:00 | NUR ---
BRAND MARKETING INTERN NOTE PATIENT'S DAUGHTER JEROD ELLISON CAME TO SEE PATIENT AROUND THIS TIME. PATIENT'S DAUGHTER VERBALIZED THAT FAMILY DOES NOT WANT PATIENT TO BE IN PAIN AND REQUESTED TO CHANGE CODE STATUS TO DNR/DNI. CALLED DR. RAMIREZ, INFORMED HIM OF FAMILY'S CHANGE IN CODE STATUS REQUEST. DOCTOR GAVE ORDERS FOR DNR/DNI CODE STATUS. ORDERS NOTED AND CARRIED OUT.
[2020-04-15] MEDS ORDERED: MORPHINE SULFATE INJ 2 MG/ML DISP.SYRIN IV PRN (23:30)
--- NOTE | 2020-04-15 23:30 | NUR ---
TREASURY REPRESENTATIVE NOTE DR. RAMIREZ CAME TO SEE PATIENT AT THIS TIME. GAVE NEW ORDERS FOR STAT EKG, STAT TROPONIN, AND MORPHINE 2MG Q4H PRN IV. ALL ORDERS NOTED AND CARRIED OUT. WILL CONTINUE TO MONITOR.
[2020-04-16] VITALS (38 sets, daily range): BP systolic 48–129; BP diastolic 27–86
--- NOTE | 2020-04-16 00:05 | NUR ---
DIRECTOR PRODUCT SAFETY NOTE RECEIVED NEW ORDERS FROM DR. RAMIREZ TO START PATIENT ON HEPARIN DRIP. STOP ELIQUIS, START ASPIRIN 325 MG QD. ORDERS NOTED AND CARRIED OUT.
[2020-04-16] MEDS: methylPREDNISolone SOD SUCC 125 MG/2ML VIAL IV SCH (00:13)
[2020-04-16] MEDS ORDERED: HEPARIN SODIUM, PORCINE 5000 UNITS/1 ML VIAL IV ONE (00:30)
[2020-04-16] MEDS ORDERED: HEPARIN INFUSION/D5W 500 ML IV PRN (00:30)
[2020-04-16] MEDS: CEFEPIME 2 GM in IV D5W 100 ML IV SCH (00:39)
[2020-04-16] MEDS ORDERED: HEPARIN INFUSION/D5W 500 ML IV ONE (00:43)
[2020-04-16] MEDS: VANCOMYCIN 1 GM in IV D5W 250ml IV SCH (01:34)
--- NOTE | 2020-04-16 03:30 | NUR ---
PROPOSAL EDITOR NOTE NOTED PATIENT WITH INCREASED BLEEDING ON ERICKSON CATHETER. CALLED AND NOTIFIED DR. RAMIREZ, RECEIVED ORDER TO STOP HEPARIN DRIP. ORDERS NOTED AND CARRIED OUT.
[2020-04-16 05:58] LABS: BASOPHILS % (AUTO) 0.1 % (0.0-2.0); HEMATOCRIT 35 % (33-45); HEMOGLOBIN 10.8 g/dL (11.5-14.8); LYMPHOCYTES # (AUTO) 0.7 /CMM (0.8-4.8); LYMPHOCYTES % (AUTO) 1.9 % (20.0-44.0); MEAN CORPUSCULAR HGB CONC 31 g/dl (31.0-36.0); MEAN CORPUSCULAR VOLUME 89 fL (82-100); MONOCYTES # (AUTO) 1.3 /CMM (0.1-1.30); MONOCYTES % (AUTO) 3.6 % (2.0-12.0); NEUTROPHILS # (AUTO) 34.9 /CMM (1.8-8.9); NEUTROPHILS % (AUTO) 94.4 % (43.0-81.0); PLATELET COUNT (AUTO) 275 /CMM (150-450)
[2020-04-16 05:58] LABS: ALANINE AMINOTRANSFERASE 202 U/L (12-78); ALBUMIN 2.6 g/dL (3.4-5.0); ALKALINE PHOSPHATASE 110 U/L (46-116); ASPARTATE AMINOTRANSFERASE 230 U/L (15-37); BILIRUBIN,TOTAL 0.6 mg/dL (0.2-1.0); CALCIUM, SERUM 8.5 mg/dL (8.5-10.1); CARBON DIOXIDE 24 mmol/L (21-32); CHLORIDE 104 mmol/L (98-107); CREATININE 1.5 mg/dL (0.6-1.3); GLUCOSE 233 mg/dL (74-106); PHOSPHORUS 4.8 mg/dL (2.5-4.9); POTASSIUM 4.4 mmol/L (3.5-5.1); SODIUM SERUM 141 mmol/L (136-145); TOTAL PROTEIN, SERUM 6.2 g/dL (6.4-8.2); UREA NITROGEN, BLOOD 56 mg/dL (7-18)
--- NOTE | 2020-04-16 07:08 | NUR ---
RN NOTES RECEIVED PT ON BED, DNR/DNI STATUS , PT HAS AGONAL BREATHING, O2 SAT IN LOW 80'S , LOW BP, SBP IN 80'S , O2 SAT IN 80'S , PT IS ON HIGH FLOW O2 , PT IS NON VERBAL, DOES NOT FOLLOW COMMAND, NO RESPONSE TO PAINFUL STIMULI AND PUPIL FIXED AND NON REACTIVE, ERICKSON DRANING TO GRAVITY WITH DARK RED URINE, CALL MAKE TO PT DAUGHTER KAREN AND SHE WAS NOTIFED REGARDING PT'S CONDITION. NO NEED FOR PRESSOR PER KAREN (PT'S DAUTHER ) REQUEST. CONTINUE TO MONITOR .
[2020-04-16] MEDS ORDERED: FUROSEMIDE 40 MG/4 ML VIAL IV SCH (07:30)
--- NOTE | 2020-04-16 07:30 | NUR ---
RN NOTES PT HAS NO PULSES ,NO SPONTANEOUS BREATHING PATIENT UNRESPONSIVE TO BOTH VERBAL AND DEEP TACTILE STIMULI. PUPILS FIXED AND DILATED. ASYSTOLE ON THE MONITOR. NO HEART TONE. NO PALPABLE PULSES. PATIENT DNR/DNI. PRONOUNCED. SUPERVISOR FELLING BUCKING KELLY BANUELOS NOTIFIED.
--- NOTE | 2020-04-16 07:30 | NUR ---
PATIENT UNRESPONSIVE TO BOTH VERBAL AND DEEP TACTLE STIMULI. PUPILS FIXED AND DILATED. NO SPONTANEOUS BREATHING NOTED. ASYSTOLE ON THE MONITOR. NO HEART TONE. NO PALPABLE PULSES. PATIENT DNR/DNI. PRONOUNCED.
[2020-04-16] MEDS ORDERED: ASPIRIN 325 MG TABLET NG SCH (09:00)
[2020-04-16] MEDS ORDERED: ENSURE ENLIVE 237 ML LIQUID (VANILLA) PO SCH (09:00)
--- NOTE | 2020-04-16 09:00 | NUR ---
RN NOTES POST MORTEM CARE DONE , BODY CAN BE RELEASED TO [facility] PER FAMILY REQUEST .
--- NOTE | 2020-04-16 09:45 | NUR ---
RN NOTES BODY SENT TO [facility] .
== END 2020-04-16 09:00 | disposition expired ==
LOC: ER 11:05 → TELE1 13:38 → ICU 18:08
PROVIDERS: ADMIT Family Medicine; ATTEND Nurse Practitioner Acute Care
DX: I11.0 Hypertensive heart disease with heart failure (principal); J15.9 Unspecified bacterial pneumonia; I21.9 Acute myocardial infarction, unspecified; J96.21 Acute and chronic respiratory failure with hypoxia; J44.1 Chronic obstructive pulmonary disease with (acute) exacerbation; J44.0 Chronic obstructive pulmonary disease with (acute) lower respiratory infection; E44.0 Moderate protein-calorie malnutrition; I48.92 Unspecified atrial flutter; I50.33 Acute on chronic diastolic (congestive) heart failure; Z68.20 Body mass index [BMI] 20.0-20.9, adult; D72.829 Elevated white blood cell count, unspecified; D63.8 Anemia in other chronic diseases classified elsewhere; E88.09 Other disorders of plasma-protein metabolism, not elsewhere classified; F41.9 Anxiety disorder, unspecified; J84.10 Pulmonary fibrosis, unspecified; I46.9 Cardiac arrest, cause unspecified; E78.5 Hyperlipidemia, unspecified; T46.2X5A Adverse effect of other antidysrhythmic drugs, initial encounter; Y92.89 Other specified places as the place of occurrence of the external cause; T38.0X5A Adverse effect of glucocorticoids and synthetic analogues, initial encounter; R79.89 Other specified abnormal findings of blood chemistry; E03.9 Hypothyroidism, unspecified; F03.90 Unspecified dementia, unspecified severity, without behavioral disturbance, psychotic disturbance, mood disturbance, and anxiety; Z66 Do not resuscitate; E87.6 Hypokalemia; Z79.01 Long term (current) use of anticoagulants; I48.0 Paroxysmal atrial fibrillation
CPT/HCPCS: 36415; 36600; 71045-TC; 80048-TC; 80053-TC; 80061-TC; 80076-TC; 80202-TC; 81000-TC; 82550-TC; 82728-TC; 82803-TC; 83605-TC; 83615-TC; 83735-TC; 84100-TC; 84439-TC; 84443-TC; 84484-TC; 85025-TC; 85378-TC; 85730-TC; 86140-TC; 87040-TC; 87081-TC; 87086-TC; 94760-TC; 94799-TC; G0378; J0692; J1100; J1644; J2060; J2405; J2543; J2930; J3370; J7030; J7050; J7060; U0003-CS